=== PATIENT | male | born 1940 | race Caucasian/White ===

== ENCOUNTER 2021-06-21 12:42 | Emergency (ER) | payer MEDICARE ==
[2021-06-21 14:23] LABS: HEMOGLOBIN 14.1 gm/dl (14.0-17.5); RED BLOOD COUNT 4.51 M/UL (4.20-5.50); WHITE BLOOD COUNT 5.1 K/UL (4.5-11.0)
== END 2021-06-21 16:40 | disposition home or self-care (01) ==
LOC: ER1 12:42
PROVIDERS: Physician Assistant
DX: U07.1 COVID-19 (principal); N18.9 Chronic kidney disease, unspecified; I12.9 Hypertensive chronic kidney disease with stage 1 through stage 4 chronic kidney disease, or unspecified chronic kidney disease; R53.83 Other fatigue
CPT/HCPCS: 71045; 80053; 81001; 85025; 99285; U0002

== ENCOUNTER → 2021-06-23 | Outpatient (CLI) | payer MEDICARE ==
[~2021-06-23] VITALS: Ht 182.9 cm; Wt 108.9 kg
== END ==
LOC: EROP 10:40
DX: U07.1 COVID-19 (principal); Z23 Encounter for immunization; I12.9 Hypertensive chronic kidney disease with stage 1 through stage 4 chronic kidney disease, or unspecified chronic kidney disease; N18.9 Chronic kidney disease, unspecified
CPT/HCPCS: M0247; Q0247

== ENCOUNTER → 2021-10-17 | Outpatient (CLI) | payer MEDICARE | LOC: KOH-I 13:07 | DX: M79.642 Pain in left hand (principal); M79.89 Other specified soft tissue disorders | CPT/HCPCS: 73130 ==

== ENCOUNTER 2021-11-01 11:20 | Emergency (ER) | payer MEDICARE ==
[2021-11-01 14:54] LABS: HEMOGLOBIN 12.5 gm/dl (14.0-17.5); RED BLOOD COUNT 3.93 M/UL (4.20-5.50); WHITE BLOOD COUNT 7.4 K/UL (4.5-11.0)
[2021-11-01 15:25] LABS: BUN/CREATININE RATIO 11 (0-10)
[2021-11-01] MEDS ORDERED: MEDROL4 MG PO (16:15)
[2021-11-01] MEDS ORDERED: CEFUROXIME500 MG PO (16:15)
== END 2021-11-01 17:39 | disposition home or self-care (01) ==
LOC: ER1 11:20
PROVIDERS: Preventive Medicine Occupational Medicine
DX: M17.11 Unilateral primary osteoarthritis, right knee (principal); J44.9 Chronic obstructive pulmonary disease, unspecified; I10 Essential (primary) hypertension; Z20.822 Contact with and (suspected) exposure to COVID-19
CPT/HCPCS: 0240U; 73560; 80053; 82550; 83690; 83874; 84550; 85025; 85652; 86140; 96374; 96375; 99283; J0696; J1885; J2930

== ENCOUNTER 2021-11-05 10:23 | Emergency (ER) | payer MEDICARE ==
[~2021-11-05 10:23] MED LIST: CEFUROXIME500 MG PO; MEDROL4 MG PO
[2021-11-05 12:41] LABS: HEMOGLOBIN 14.4 gm/dl (14.0-17.5); RED BLOOD COUNT 4.54 M/UL (4.20-5.50); WHITE BLOOD COUNT 11.1 K/UL (4.5-11.0)
[2021-11-05 14:15] LABS: BUN/CREATININE RATIO 12 (0-10)
[2021-11-05] MEDS ORDERED: HYDROCODON-ACE1 EAC4 PO (17:39)
== END 2021-11-05 18:13 | disposition home or self-care (01) ==
LOC: ER1 10:23
PROVIDERS: Emergency Medicine
DX: M06.9 Rheumatoid arthritis, unspecified (principal); I10 Essential (primary) hypertension; E78.5 Hyperlipidemia, unspecified; M79.89 Other specified soft tissue disorders; Z20.822 Contact with and (suspected) exposure to COVID-19
CPT/HCPCS: 0240U; 80053; 81001; 84550; 85025; 85652; 86140; 96374; 96375; 99283; J1100; J2270; J2405